=== PATIENT | female | born 1945 | race Caucasian/White ===

== ENCOUNTER → 2018-08-10 | Outpatient (CLI) | payer OTHER ==
--- NOTE | 2018-08-13 13:35 | CPEEG ---
DATE OF STUDY: 08/10/2018 INTERPRETATION: Normal EEG during wakefulness and sleep. There was no potentially epileptogenic abn ormalities present during recording. REPORT: This EEG contains 10 Hz alpha activity to the posterior head regions. There was no abnormal activation at rest, photic stimulation or hyperventilation. The patient became drowsy and fell asle ep during the study. There was no abnormal activation during drowsiness, sleep, or during times of a rousal. /[id number]/MODL
== END ==
LOC: FCPNEURO 09:52
PROVIDERS: ATTEND Psychiatry & Neurology Neurology
DX: R42 Dizziness and giddiness (principal)